=== PATIENT | female | born 1980 | race Two or more races ===

== ENCOUNTER → 2016-09-20 | Outpatient (REF) | payer OTHER | END | disposition home or self-care (01) | LOC: M SFHCLERA 20:06 | PROVIDERS: ATTEND Physician Assistant | DX: R30.0 Dysuria (principal) ==

== ENCOUNTER 2016-09-25 17:41 | Observation (INO) | payer OTHER ==
[~2016-09-25] VITALS: Ht 152.4 cm; Wt 56.7 kg
[2016-09-25] MEDS ORDERED: ONDANSETRON 4MG/2ML VIAL (J2405) As Ordered ONE (18:29)
[2016-09-25] MEDS ORDERED: MORPHINE 4 MG/ML 1ML SYRINGE As Ordered ONE (18:29)
[2016-09-25 18:55] LABS: CONTROL LINE UCG INT CTR LINE PRESENT
[2016-09-25 18:57] LABS: BASO % 0.4 % (0.0-1.0); EOS # 0.1 K/mm3 (0.0-0.50); EOS % 2.1 % (0.0-3.0); LARGE UNSTAINED CELL # 0.2 K/mm3 (0.0-0.4); LARGE UNSTAINED CELL % 2.7 % (0.0-4.0); LYMPH # 2.7 K/mm3 (1.5-4.5); LYMPH % 45.5 % (24.0-44.0); MEAN CORPUSCULAR HEMOGLOBIN 32.3 pg (27.0-33.0); MEAN CORPUSCULAR HGB CONC 33.5 g/dl (32.0-36.5); MEAN CORPUSCULAR VOLUME 96.4 fl (80.0-96.0); MONO # 0.2 K/mm3 (0.0-0.8); MONO % 3.7 % (0.0-5.0); NEUTROPHILS # 2.7 K/mm3 (1.8-7.7); NEUTROPHILS % 45.5 % (36.0-66.0); PLATELET COUNT, AUTOMATED 273 k/mm3 (150-450); RED CELL DISTRIBUTION WIDTH 11.9 % (11.5-14.5); WHITE BLOOD COUNT 5.8 K/mm3 (4.0-10.0)
[2016-09-25 19:25] LABS: ALBUMIN 4.1 GM/DL (3.2-5.2); ALBUMIN/GLOBULIN RATIO 1.41 (1.00-1.93); ALKALINE PHOSPHATASE 90 U/L (45-117); ALT/SGPT 18 U/L (12-78); ANION GAP 7 MEQ/L (8-16); AST/SGOT 15 U/L (15-37); BILIRUBIN,DIRECT < 0.1 MG/DL (0.0-0.2); BILIRUBIN,TOTAL 0.6 MG/DL (0.2-1.0); BLOOD UREA NITROGEN 16 MG/DL (7-18); CALCIUM LEVEL 8.7 MG/DL (8.5-10.1); CARBON DIOXIDE LEVEL 27 MEQ/L (21-32); CHLORIDE LEVEL 109 MEQ/L (98-107); CREATININE FOR GFR 0.67 MG/DL (0.55-1.02); GLOMERULAR FILTRATION RATE > 60.0 (>60); GLUCOSE, FASTING 83 MG/DL (70-105); POTASSIUM SERUM 3.6 MEQ/L (3.5-5.1); SODIUM LEVEL 143 MEQ/L (136-145)
[2016-09-25] MEDS ORDERED: KETOROLAC 30 MG/ML VIAL (J1885) As Ordered ONE (20:00)
--- NOTE | 2016-09-25 20:40 | REPUSA ---
CLINICAL STATEMENT: Renal colic TECHNIQUE: CT of the abdomen and pelvis without intravenous contrast. Post imaging 3D technique was e mployed to obtain multiplanar reformats in coronal and sagittal projections. COMPARISON: None FINDINGS: Visualized Lower Thorax : Lung bases are clear. Heart unremarkable. Kidneys: Normal in size with multiple bilateral stones measuring up to 6 mm in interpole without hydr oureteronephrosis. Bladder : No stones or diverticula. Liver: Normal in size with smooth contours. Biliary system: Status post cholecystectomy with no biliary ductal dilatation or calcified biliary st ones. Pancreas: Unremarkable. Spleen: Unremarkable. Adrenal glands: Unremarkable. Bowel: Normal caliber. No wall thickening appreciated. Uterus/adnexa: Unremarkable. Lymph nodes: No enlarged lymphadenopathy. Vasculature : No aneurysm . Peritoneum/Mesentery/Retroperitoneum : No ascites. No extraluminal air. Abdominal wall: No hernias Osseous Structures : No suspicious lesions or acute fracture. Mild multilevel degenerative changes of the spine. Soft Tissues : No suspicious mass or acute inflammatory process. Spinal canal/Visualized sacral foramina : No enlarged mass. IMPRESSION: Multiple bilateral stones measuring up to 6 mm in interpole without hydroureteronephrosis. Thank you for the kind referral of this patient.
[2016-09-25] MEDS ORDERED: ZOFR20TA PO (21:21)
[2016-09-25] MEDS ORDERED: CIPR500T89 PO (21:21)
[2016-09-25] MEDS ORDERED: PERCOCET 5MG/325MG TAB PO PRN (21:30)
[2016-09-25] MEDS ORDERED: ONDANSETRON 4MG/2ML VIAL (J2405) IV PRN (21:30)
[2016-09-25] MEDS ORDERED: ACETAMINOPHEN TAB 650MG DOSE (2X325MG) PO PRN (21:30)
[2016-09-25] MEDS ORDERED: PERCOCET 5MG/325MG TAB As Ordered ONE ×2 (21:56→23:45)
--- NOTE | 2016-09-25 22:19 | HPE ---
DATE OF ADMISSION: 09/25/2016 PRIMARY CARE PROVIDER: None. Patient just moved over from [facility], but should be seeing physicians on [facility]. CHIEF COMPLAINT: Left-sided flank pain, chills. HISTORY OF PRESENT ILLNESS: This is a 36yo female patient with underlying medical history of medullary sponge kidney with recurrent kidney stones and frequent urinary tract infection (UTI) presented since Friday with worsening left-sided flank pain, onset on Friday. As per patient, she gets chronic bilateral flank pain but does get episodic worsening flank pain and also UTIs frequently numerous times over the past year. The patient had two kidney surgeries in the past for kidney stones. The patient presented to Urgent Care on Friday with 8 out of 10 left-sided flank pain and chills. Denies any dysuria, hematuria, change in colors or increasing frequencies. Was prescribed with Cipro. Despite treatment, the patient's condition worsened and as of today the patient had 10 episodes of nausea and vomiting, nonbloody, nonbilious, mostly food. Not tolerating much oral and unable to take medications. Subsequently, the patient presents to the emergency room. Was given pain medication in the emergency room. Reported pain much improved, at its worst is 8 out of 10 with no relieving or exacerbating factor, mostly on the left side and with mild abdominal pain bilateral lower quadrant. The patient used to see a structures engineer and urologist in [facility] but because of the move the patient did not have subsequent followup. Last kidney surgery was two years ago. Denies any chest pain, pressure or discomfort. Denies any diarrhea or constipation. ALLERGIES: No known drug allergies. PAST MEDICAL HISTORY: Medullary sponge kidney disease. Nephrolithiasis. Frequent UTI. PAST SURGICAL HISTORY: Cholecystectomy. Tubal ligation. Kidney stone removal surgery twice. The last one was two years ago. SOCIAL HISTORY: The patient smokes a half a pack per day for 10 years. Denies alcohol drinking. Denies any illicit drug use. REVIEW OF SYSTEMS: 11-point review of systems are negative except those mentioned in the HPI. HOME MEDICATIONS: The patient is on: - ciprofloxacin 500 mg by mouth twice a day - Zofran 4 mg by mouth as needed three times a day for nausea VITAL SIGNS: Blood pressure 86/54, pulse 52, respirations 16, temperature 98.5, pulse oximetry 100% on room air. GENERAL: The patient alert and oriented times three. In no acute distress. HEENT: Normocephalic, atraumatic. PULMONARY: Bilateral clear to auscultation. CARDIAC: Regular rate and rhythm. Normal S1, S2. ABDOMEN: Soft, minimal suprapubic tenderness, no rebound, no guarding. Normal bowel sounds flank, less DVA, mild tender to palpation. EXTREMITIES: No edema bilateral lower extremities. CT scan shows multiple bilateral stones measuring up to 6 mm in the interpolar with hydronephrosis. LABORATORY: WBC 5.8, hemoglobin and hematocrit 14.3/42.8, platelets 273. Chemistry: Sodium 143, potassium 3.6, chloride 109, bicarbonate 27, anion gap 7, BUN 16, creatinine 0.67. Lipase 125. ASSESSMENT AND PLAN: This is a 36-year-old female patient with underlying medical history of medullary sponge kidney disease, nephrolithiasis, recurrent UTI admitted for pyelonephritis and nephrolithiasis with left-sided flank pain and was also found hypotensive in the emergency room. PROBLEM LIST: 1. Left-sided pyelonephritis and bilateral nephrolithiasis. IV fluids for hydration. Pain regimen as prescribed. Zofran as needed. Antibiotics switched to Rocephin. Followup UA appreciated. Urine cultures. The patient will need outpatient followup with urology. IV hydration. 2. Hypotension. Possible etiology include underlying infection versus baseline blood pressure that is low versus opioids. IV hydration has been given. Given 2 liters of boluses in emergency room. Placed on maintenance fluids. Followup lactic acid. 3. Medullary sponge kidney disease. Outpatient followup with nephrology and urology. 4. Nephrolithiasis. Outpatient followup with urology. Continue antibiotics as ordered. 5. Nausea and vomiting. Likely secondary to pyelonephritis. Zofran as needed. Antibiotics as above. DVT prophylaxis. Lovenox subcutaneous. DISPOSITION PLANNING: Pending clinical improvement. The patient admitted under observation. If patient tolerated by mouth (p.o.) with improved vital signs. Possible discharge tomorrow.
--- NOTE | 2016-09-25 23:56 | EDDOCDS ---
Physician Documentation [facility] Name: Gi Alvarez Age: 36 yrs Sex: Female : 1980 Arrival Date: 09/25/2016 Time: 17:41 Bed 5 Private MD: Shoshana - Complete Info On Cds Disposition: 09/25/16 20:59 Hospitalization ordered by Sunita Harmon for Inpatient Admission. Preliminary diagnosis are Unspecified abdominal pain, Hypotension, unspecified. - Bed requested for M PED. - Status is Inpatient Admission. cf2 - Condition is Stable. - Problem is new. - Symptoms are unchanged. Historical: - Allergies: No known drug Allergies; - Home Meds: 1. Cipro 500 mg Oral tab 1 tab every 12 hours 2. Zofran (as hydrochloride) 4 mg Oral tab every 12 hours - PMHx: MSK; kidney stones; frequent UTI; - PSHx: Tubal ligation; kidney stone removal; - Social history: Smoking status: Patient uses tobacco products, light tobacco smoker. No barriers to communication noted, The patient speaks fluent Slovenian, Speaks appropriately for age. - Family history: Not pertinent. - : The pt / caregiver states he / she is not on anticoagulants. Home medication list is obtained from the patient. - Exposure Risk Screening:: None identified. 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 0 in. (152.40 cm) (R); Pain 6/10; 18:24 BP 99 / 62 (auto/); ead 18:26 Pulse 62 MON; Resp 16; Pulse Ox 97% on R/A; ead 18:39 BP 87 / 54 (auto/); ead 18:39 Pulse 60 MON; Pulse Ox 96% ; ead 18:44 BP 82 / 53 (auto/); ead 18:44 Pulse 52 MON; Pulse Ox 97% ; ead 18:55 BP 86 / 54 LA Supine (man/); ead 18:58 BP 88 / 52 (auto/); ead 18:58 Pulse 52 MON; Resp 16; Pulse Ox 95% on R/A; ead 19:00 Pain 6/10; ead 19:24 BP 91 / 50 (auto/); cf2 19:24 Pulse 84 MON; Pulse Ox 86% ; cf2 19:27 Pulse 48 MON; Pulse Ox 100% ; cf2 19:27 BP 93 / 61; Pulse 62; Resp 16; Temp 98.8; Pulse Ox 99% on R/A; Pain 8/10; cf2 19:28 Pulse 54 MON; Pulse Ox 99% ; cf2 20:42 BP 89 / 53 (auto/); cf2 17:43 Body Mass Index 24.41 (56.70 kg, 152.40 cm) gr2 MDM: 18:03 IV Saline Lock ordered. br1 18:04 CBC with Diff Ordered. EDMS 18:05 BMP Ordered. EDMS 18:05 Liver Profile Ordered. EDMS 18:05 Lipase Ordered. EDMS 18:06 Urinalysis Ordered. EDMS 18:06 Urine Test-In Lab Ordered. EDMS 18:06 Urine Culture Ordered. EDMS 18:10 morphine 4 mg IVP once ordered. br1 18:10 Ondansetron 4 mg IVP once ordered. br1 18:10 NS 0.9% 1000 ml IV at bolus once ordered. br1 18:22 Undress patient ordered. br1 18:56 Financial registration complete. zo 18:57 NS 0.9% 1000 ml IV at bolus once ordered. br1 18:57 Urine Test-In Lab Reviewed. br1 19:02 [facility] Payment Agreement was scanned into [employer] and attached to record. zo 19:22 CBC with Diff Reviewed. br1 19:22 Urinalysis Reviewed. br1 19:22 Urine Test-In Lab Reviewed. br1 19:24 CT ABD & PELVIS: No Contrast Ordered. EDMS 19:51 BMP Reviewed. br1 19:51 Liver Profile Reviewed. br1 19:51 Lipase Reviewed. br1 19:51 ketorolac 30 mg IVP once ordered. br1 20:57 Lactic Acid (Leger tube on ice) Ordered. EDMS 20:57 BED REQUEST+ADM ordered. EDMS 21:21 COMPLETE BLOOD COUNT Ordered. EDMS 21:21 BASIC METABOLIC PROFILE Ordered. EDMS 21:21 MAGNESIUM LEVEL Ordered. EDMS 21:21 LACTIC ACID LEVEL, LACTATE Ordered. EDMS 21:25 Admission / Observation Status ordered. EDMS 21:25 REGULAR DIET ordered. EDMS 22:14 oxyCODONE-acetaminophen 5 mg-325 mg 1 tabs PO once ordered. cf2 23:52 oxyCODONE-acetaminophen 5 mg-325 mg 1 tabs PO once; orders from dr Harmon ordered. cf2 Administered Medications: 18:35 Drug: Ondansetron 4 mg [ondansetron HCl 2 mg/mL intravenous solution (2 mL)] Route: ead IVP; Site: right antecubital; 19:00 Follow up: Response: Nausea is decreased; No Adverse Reaction ead 18:35 Drug: NS 0.9% 1000 ml [sodium chloride 0.9 % intravenous solution] Route: IV; Rate: ead bolus; Site: right antecubital; 18:37 Drug: morphine 4 mg [morphine 4 mg/mL intravenous cartridge (1 mL)] Route: IVP; Site: ead right antecubital; 19:00 Follow up: Pain 6/10 Adult; Response: Confirmed pt not driving.; No Adverse Reaction; ead Pain is decreased 19:05 Drug: NS 0.9% 1000 ml [sodium chloride 0.9 % intravenous solution] Route: IV; Rate: ead bolus; Site: right antecubital; 20:00 Drug: ketorolac 30 mg [ketorolac 30 mg/mL (1 mL) injection solution (1 mL)] Route: IVP; cf2 Site: left antecubital; 20:09 Follow up: Response: Pain is decreased cf2 21:50 Drug: oxyCODONE-acetaminophen 1 tabs [oxycodone-acetaminophen 5 mg-325 mg tablet (1 cf2 tabs)] Route: PO; 23:52 Follow up: Response: Pain is decreased cf2 23:52 Drug: oxyCODONE-acetaminophen 1 tabs [oxycodone-acetaminophen 5 mg-325 mg tablet (1 cf2 tabs)] Route: PO; 23:52 Follow up: Response: Pt left department before re-evaluation is appropriate cf2 Signatures: Dispatcher [employer] EDJackie Garcia,KIANA RN jo3 Anurag Pinto Kristopher, BITA CFD ENGINEER [email or web address] Ilia Pickett DO DO [id number] iFnn Alonzo MD MD br1 Clarisa PerezRN RN cf2 Nate Gambino RN RN Grecia Clifford RN The chart was reviewed and I authenticate all verbal orders and agree with the evaluation and treatment provided.Attachments: 19:02 [facility] Payment Agreement zo [email or web address]
--- NOTE | 2016-09-25 23:56 | EDDOCDS ---
Nurse's Notes [facility] Name: Gi Alvarez Age: 36 yrs Sex: Female : 1980 Arrival Date: 09/25/2016 Time: 17:41 Bed 5 Private MD: Other - Complete Info On Cds Diagnosis: Unspecified abdominal pain;Hypotension, unspecified Presentation: 09/25 17:48 Presenting complaint: Patient states: Sent over my Dr Schuler's because of likely kidney jo3 stones. Has a MSK and has had multiple kidney stones in the past. Having back and abdominal pain of left side. Acute neurological deficits are not present. Mechanism of Injury: No Mechanism of Injury. Adult Sepsis Screening: The patient does not have new or worsening altered mentation. Patient's respiratory rate is less than 22. Systolic blood pressure is less than or equal to 100 (1 point). Patient has a qSOFA score of 0- Negative Sepsis Screen. Suicide/Homicide risk assessment- the patient denies having any suicidal and/or homicidal ideations and does not present with any other emotional, behavioral or mental health complaints. Status: The patient is a dependent. Transition of care: patient was not received from another setting of care. 17:48 Acuity: JAROD Level 3 jo3 17:48 Method Of Arrival: Walkin/Carried/Asstd jo3 Triage Assessment: 17:52 General: Appears in no apparent distress, uncomfortable, Behavior is appropriate for jo3 age, cooperative. Pain: Pain currently is 8 out of 10 on a pain scale. HIV screening NA for this visit Offered previously. Neurological: Level of Consciousness is awake, alert, Oriented to person, place, time. Respiratory: Airway is patent Respiratory effort is even, unlabored. Derm: Skin is pink, warm & dry. 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 Cipro 500 mg Oral tab 1 tab every 12 hours 2. Zofran (as hydrochloride) 4 mg Oral tab every 12 hours - PMHx: MSK; kidney stones; frequent UTI; - PSHx: Tubal ligation; kidney stone removal; - Social history: Smoking status: Patient uses tobacco products, light tobacco smoker. No barriers to communication noted, The patient speaks fluent Yakut, Speaks appropriately for age. - Family history: Not pertinent. - : The pt / caregiver states he / she is not on anticoagulants. Home medication list is obtained from the patient. - Exposure Risk Screening:: None identified. Screenin:28 Screening information is obtained from the patient. Fall risk: No risks identified. cf2 Assistance ADL's: requires no assistance with activities of daily living. Abuse/DV Screen: The patient / caregiver reports he/she is: not in a situation that causes fear, pain or injury. Nutritional screening: No deficits noted. Advance Directives: Further advance directive information is declined. home support is adequate. Assessment: 18:46 General: Appears in no apparent distress, uncomfortable, Behavior is appropriate for ead age, cooperative. Pain: Location: posterior aspect of left lateral abdomen and anterior aspect of left lateral abdomen Pain currently is 8 out of 10 on a pain scale. Neurological: No deficits noted. Respiratory: Airway is patent Respiratory effort is even, unlabored. GI: Abdomen is non- distended Bowel sounds present X 4 quads. Abd is soft X 4 quads Abd is tender to palpation X 4 quads. Reports lower abdominal pain, upper abd pain, nausea, vomiting. : Denies burning with urination, pain with urination. Derm: Skin is pink, warm & dry. Musculoskeletal: Reports pain in posterior aspect of left lateral abdomen and anterior aspect of left lateral abdomen. 22:14 General: Patient states pain is returning. Patient medicated with Percocet 5/325 1 tab cf2 per admission orders and given a dinner tray. Will continue to monitor. 23:50 General: Patient with complaint of increasing flank pain. Dr GEIGER called and per Dr Geiger cf2 give Percoct 5/325 1 tab PO now x's 1. Patient medicated per md orders. Report to KIANA Powell, on Peds floor.. Vital Signs: 17:43 BP 98 / 54; Pulse 70; Resp 18 S; Temp 98.5(O); Pulse Ox 100% on R/A; Weight 56.7 kg gr2 (R); Height 5 ft. 0 in. (152.40 cm) (R); Pain 6/10; 18:24 BP 99 / 62 (auto/); ead 18:26 Pulse 62 MON; Resp 16; Pulse Ox 97% on R/A; ead 18:39 BP 87 / 54 (auto/); ead 18:39 Pulse 60 MON; Pulse Ox 96% ; ead 18:44 BP 82 / 53 (auto/); ead 18:44 Pulse 52 MON; Pulse Ox 97% ; ead 18:55 BP 86 / 54 LA Supine (man/); ead 18:58 BP 88 / 52 (auto/); ead 18:58 Pulse 52 MON; Resp 16; Pulse Ox 95% on R/A; ead 19:00 Pain 6/10; ead 19:24 BP 91 / 50 (auto/); cf2 19:24 Pulse 84 MON; Pulse Ox 86% ; cf2 19:27 Pulse 48 MON; Pulse Ox 100% ; cf2 19:27 BP 93 / 61; Pulse 62; Resp 16; Temp 98.8; Pulse Ox 99% on R/A; Pain 8/10; cf2 19:28 Pulse 54 MON; Pulse Ox 99% ; cf2 20:42 BP 89 / 53 (auto/); cf2 17:43 Body Mass Index 24.41 (56.70 kg, 152.40 cm) gr2 Vitals: 17:43 Log In Time: September 25, 2016 at 17:43. gr2 ED Course: 17:42 Patient visited by Katherine Hanson. gr2 17:42 Patient moved to Waiting gr2 17:43 Other - Complete Info On Cds is Private Physician. gr2 17:44 Patient visited by Katherine Hanson. gr2 17:44 Patient moved to Pre RCE gr2 17:50 Triage Initiated jo3 17:54 Patient visited by Jackie Pan RN. jo3 18:02 Grecia Orellana,RN is Primary Nurse. ck1 18:02 Patient moved to 5 ck1 18:03 Finn Alonzo MD is Attending Physician. br1 18:09 Patient visited by Finn Alonzo MD. br1 18:28 Patient visited by Grecia Orellana,KIANA. ead 18:28 Urine Culture Sent. ead 18:28 Urine Test-In Lab Sent. ead 18:28 Urinalysis Sent. ead 18:28 CBC with Diff Sent. ead 18:28 BMP Sent. ead 18:28 Liver Profile Sent. ead 18:28 Lipase Sent. ead 18:29 Inserted peripheral IV: 18gauge IV in right antecubital area and blood collected. ead Patient tolerated the procedure well. 18:45 Patient visited by Grecia Orellana RN. ead 18:58 Patient visited by Grecia Orellana RN. ead 19:01 Patient visited by Grecia Orellana RN. ead 19:02 [facility] Payment Agreement was scanned into [employer] and attached to record. zo 19:06 Primary Nurse role handed off by Grecia Orellana RN cf2 19:06 Clarisa Perez RN is Primary Nurse. cf2 19:06 Patient visited by Clarisa Perez RN. cf2 19:28 The patient / caregiver is instructed regarding the plan of care and ED course. Patient cf2 has correct armband on for positive identification. Placed in gown. Bed in low position. Call light in reach. Side rails up X 1. Side rails up X2. site monitor on. Pulse ox on. NIBP on. Door closed. Noise minimized. Visitors limited. Lights dimmed. Moved to private room. Verbal reassurance given. Warm blanket given. Pillow given. Head of bed elevated. Diet: Patient is NPO. 19:28 No procedures done that require assistance. cf2 19:46 Patient visited by Clarisa Perez RN. cf2 20:18 Patient visited by Clarsia Perez RN. cf2 20:34 Patient visited by Clarisa Perez RN. cf2 20:59 Sunita Geiger is Hospitalizing Provider. br1 21:09 Patient visited by Clarisa Perez RN. cf2 21:32 CT ABD & PELVIS: No Contrast Returned. EDMS 22:23 Patient visited by Clarisa Perez RN. cf2 22:49 Patient visited by Clarisa Perez RN. cf2 22:58 Patient visited by Clarisa Perez RN. cf2 23:21 Patient visited by Clarisa Perez RN. cf2 23:22 Patient visited by Clarisa Perez RN. cf2 23:49 Patient visited by Clarisa Perez RN. cf2 Administered Medications: 18:35 Drug: Ondansetron 4 mg [ondansetron HCl 2 mg/mL intravenous solution (2 mL)] Route: ead IVP; Site: right antecubital; 19:00 Follow up: Response: Nausea is decreased; No Adverse Reaction ead 18:35 Drug: NS 0.9% 1000 ml [sodium chloride 0.9 % intravenous solution] Route: IV; Rate: ead bolus; Site: right antecubital; 18:37 Drug: morphine 4 mg [morphine 4 mg/mL intravenous cartridge (1 mL)] Route: IVP; Site: ead right antecubital; 19:00 Follow up: Pain 02/01 Adult; Response: Confirmed pt not driving.; No Adverse Reaction; ead Pain is decreased 19:05 Drug: NS 0.9% 1000 ml [sodium chloride 0.9 % intravenous solution] Route: IV; Rate: ead bolus; Site: right antecubital; 20:00 Drug: ketorolac 30 mg [ketorolac 30 mg/mL (1 mL) injection solution (1 mL)] Route: IVP; cf2 Site: left antecubital; 20:09 Follow up: Response: Pain is decreased cf2 21:50 Drug: oxyCODONE-acetaminophen 1 tabs [oxycodone-acetaminophen 5 mg-325 mg tablet (1 cf2 tabs)] Route: PO; 23:52 Follow up: Response: Pain is decreased cf2 23:52 Drug: oxyCODONE-acetaminophen 1 tabs [oxycodone-acetaminophen 5 mg-325 mg tablet (1 cf2 tabs)] Route: PO; 23:52 Follow up: Response: Pt left department before re-evaluation is appropriate cf2 Order Results: Lab Order: CBC with Diff; SPEC'M 09/25/16 18:25 Test: WHITE BLOOD COUNT; Value: 5.8; Range: 4.0-10.0; Units: K/mm3; Status: F Test: RED BLOOD COUNT; Value: 4.44; Range: 4.00-5.40; Units: M/mm3; Status: F Test: HEMOGLOBIN; Value: 14.3; Range: 12.0-16.0; Units: g/dl; Status: F Test: HEMATOCRIT; Value: 42.8; Range: 36.0-47.0; Units: %; Status: F Test: MEAN CORPUSCULAR VOLUME; Value: 96.4; Range: 80.0-96.0; Abnormal: Above high normal; Units: fl; Status: F Test: MEAN CORPUSCULAR HEMOGLOBIN; Value: 32.3; Range: 27.0-33.0; Units: pg; Status: F Test: MEAN CORPUSCULAR HGB CONC; Value: 33.5; Range: 32.0-36.5; Units: g/dl; Status: F Test: RED CELL DISTRIBUTION WIDTH; Value: 11.9; Range: 11.5-14.5; Units: %; Status: F Test: PLATELET COUNT, AUTOMATED; Value: 273; Range: 150-450; Units: k/mm3; Status: F Test: NEUTROPHILS %; Value: 45.5; Range: 36.0-66.0; Units: %; Status: F Test: LYMPH %; Value: 45.5; Range: 24.0-44.0; Abnormal: Above high normal; Units: %; Status: F Test: MONO %; Value: 3.7; Range: 0.0-5.0; Units: %; Status: F Test: EOS %; Value: 2.1; Range: 0.0-3.0; Units: %; Status: F Test: BASO %; Value: 0.4; Range: 0.0-1.0; Units: %; Status: F Test: LARGE UNSTAINED CELL %; Value: 2.7; Range: 0.0-4.0; Units: %; Status: F Test: NEUTROPHILS #; Value: 2.7; Range: 1.8-7.7; Units: K/mm3; Status: F Test: LYMPH #; Value: 2.7; Range: 1.5-4.5; Units: K/mm3; Status: F Test: MONO #; Value: 0.2; Range: 0.0-0.8; Units: K/mm3; Status: F Test: EOS #; Value: 0.1; Range: 0.0-0.50; Units: K/mm3; Status: F Test: BASO #; Value: 0.0; Range: 0.0-0.2; Units: K/mm3; Status: F Test: LARGE UNSTAINED CELL #; Value: 0.2; Range: 0.0-0.4; Units: K/mm3; Status: F Lab Order: BMP; SPEC'M 09/25/16 18:25 Test: GLUCOSE, FASTING; Value: 83; Range: 70-105; Units: MG/DL; Status: F Test: BLOOD UREA NITROGEN; Value: 16; Range: 7-18; Units: MG/DL; Status: F Test: CREATININE FOR GFR; Value: 0.67; Range: 0.55-1.02; Units: MG/DL; Status: F Test: GLOMERULAR FILTRATION RATE; Value: > 60.0; Range: >60; Status: F Test: SODIUM LEVEL; Value: 143; Range: 136-145; Units: MEQ/L; Status: F Test: POTASSIUM SERUM; Value: 3.6; Range: 3.5-5.1; Units: MEQ/L; Status: F Test: CHLORIDE LEVEL; Value: 109; Range: 98-107; Abnormal: Above high normal; Units: MEQ/L; Status: F Test: CARBON DIOXIDE LEVEL; Value: 27; Range: 21-32; Units: MEQ/L; Status: F Test: ANION GAP; Value: 7; Range: 8-16; Abnormal: Below low normal; Units: MEQ/L; Status: F Test: CALCIUM LEVEL; Value: 8.7; Range: 8.5-10.1; Units: MG/DL; Status: F Test Note: ; Units are mL/min/1.73 m2 Chronic Kidney Disease Staging per NKF: Stage I & II GFR >=60 Normal to Mildly Decreased Stage III GFR 30-59 Moderately Decreased Stage IV GFR 15-29 Severely Decreased Stage V GFR <15 Very Little GFR Left ESRD GFR <15 on SAP [employer]ROLL CONSULTANT Lab Order: Liver Profile; SPEC'M 09/25/16 18:25 Test: AST/SGOT; Value: 15; Range: 15-37; Units: U/L; Status: F Test: ALT/SGPT; Value: 18; Range: 12-78; Units: U/L; Status: F Test: ALKALINE PHOSPHATASE; Value: 90; Range: 45-117; Units: U/L; Status: F Test: BILIRUBIN,TOTAL; Value: 0.6; Range: 0.2-1.0; Units: MG/DL; Status: F Test: BILIRUBIN,DIRECT; Value: < 0.1; Range: 0.0-0.2; Units: MG/DL; Status: F Test: TOTAL PROTEIN; Value: 7.0; Range: 6.4-8.2; Units: GM/DL; Status: F Test: ALBUMIN; Value: 4.1; Range: 3.2-5.2; Units: GM/DL; Status: F Test: ALBUMIN/GLOBULIN RATIO; Value: 1.41; Range: 1.00-1.93; Status: F Lab Order: Lipase; SPEC'M 09/25/16 18:25 Test: LIPASE; Value: 125; Range: 73-393; Units: U/L; Status: F Lab Order: Urinalysis; SPEC'M 09/25/16 18:25 Test: APPEARANCE, URINE; Value: HAZY; Range: CLEAR; Status: F Test: COLOR, URINE; Value: YELLOW; Range: YELLOW; Status: F Test: PH,URINE; Value: 5.0; Range: 5.0-9.0; Units: UNITS; Status: F Test: SPECIFIC GRAVITY URINE AUTO; Value: 1.031; Range: 1.002-1.035; Status: F Test: PROTEIN, URINE AUTO; Value: 1+; Range: NEGATIVE; Abnormal: Above high normal; Units: mg/dL; Status: F Test: GLUCOSE, URINE (UA) AUTO; Value: NEGATIVE; Range: NEGATIVE; Units: mg/dL; Status: F Test: KETONE, URINE AUTO; Value: NEGATIVE; Range: NEGATIVE; Units: mg/dL; Status: F Test: UROBILINOGEN, URINE AUTO; Value: 0.2; Range: 0.0-2.0; Units: mg/dL; Status: F Test: BILIRUBIN, URINE AUTO; Value: NEGATIVE; Range: NEGATIVE; Status: F Test: NITRITE, URINE AUTO; Value: NEGATIVE; Range: NEGATIVE; Status: F Test: LEUKOCYTE ESTERASE, URINE AUTO; Value: NEGATIVE; Range: NEGATIVE; Status: F Test: BLOOD, URINE BLOOD; Value: 1+; Range: NEGATIVE; Abnormal: Above high normal; Status: F Test: SPERM, URINE AUTO; Range: NONE; Status: I Test: WBC, URINE AUTO; Value: 2; Range: 0-3; Units: /HPF; Status: F Test: RBC, URINE AUTO; Value: 6; Range: 0-3; Abnormal: Above high normal; Units: /HPF; Status: F Test: BACTERIA, URINE AUTO; Value: NEGATIVE; Range: NEGATIVE; Status: F Test: SQUAMOUS EPITHELIAL CELL UR AU; Value: 11; Range: 0-6; Units: /HPF; Status: F Test: MUCUS, URINE; Value: LARGE; Range: NEGATIVE; Status: F Test: HYALINE CAST, URINE AUTO; Value: 0; Range: 0-1; Units: /LPF; Status: F Lab Order: Urine Test-In Lab; SPEC'M 09/25/16 18:25 Test: URINE PREG TEST; Value: NEGATIVE; Range: NEGATIVE; Status: F Radiology Order: CT ABD & PELVIS: No Contrast Test: CT ABD & PELVIS: No Contrast REASON FOR EXAMINATION: Renal colic; ; CLINICAL STATEMENT: Renal colic; TECHNIQUE: CT of the abdomen and pelvis without intravenous contrast. Post imaging 3D technique was e; mployed to obtain multiplanar reformats in coronal and sagittal projections.; COMPARISON: None; FINDINGS:; Visualized Lower Thorax : Lung bases are clear. Heart unremarkable.; Kidneys: Normal in size with multiple bilateral stones measuring up to 6 mm in interpole without hydr; oureteronephrosis.; Bladder : No stones or diverticula.; Liver: Normal in size with smooth contours.; Biliary system: Status post cholecystectomy with no biliary ductal dilatation or calcified biliary st; ones.; Pancreas: Unremarkable.; Spleen: Unremarkable.; Adrenal glands: Unremarkable.; Bowel: Normal caliber. No wall thickening appreciated.; Uterus/adnexa: Unremarkable.; Lymph nodes: No enlarged lymphadenopathy.; Vasculature : No aneurysm .; Peritoneum/Mesentery/Retroperitoneum : No ascites. No extraluminal air.; Abdominal wall: No hernias; Osseous Structures : No suspicious lesions or acute fracture. Mild multilevel degenerative changes of; the spine.; Soft Tissues : No suspicious mass or acute inflammatory process.; Spinal canal/Visualized sacral foramina : No enlarged mass.; IMPRESSION:; Multiple bilateral stones measuring up to 6 mm in interpole without hydroureteronephrosis.; Thank you for the kind referral of this patient.; ; Outcome: 20:59 Decision to Hospitalize by Provider. br1 23:52 Discharge Assessment: Patient awake, alert and oriented x 3. No cognitive and/or cf2 functional deficits noted. Patient verbalized understanding of disposition instructions. Patient awake and alert. Oriented to person, place and time. patient administered narcotics - yes. Patient was admitted to the hospital or transferred to another facility. The following High Risk Discharge criteria are identified: None. Admitted to Pediatrics. Condition: stable. CT Study completed. Property :Personal belongings accompany Pt. 23:55 Patient left the ED. cf2 Signatures: Dispatcher [employer] EDMS Ofelia Oleary,RN RN ck1 Jackie PanRN RN jo3 Anurag Pinto Brian, MD MD br1 Katherine Hanson2 Grecia Orellana,RN RN Clarisa GormanRN RN cf2 MARY ELLEN
[2016-09-26] VITALS (12 sets, daily range): BP systolic 79–108; BP diastolic 42–56
[2016-09-26] MEDS: KCL 20MEQ IN 0.45NS 1000ML 1,000 ML IV SCH ×3 (01:18→20:19)
[2016-09-26] MEDS: LACTOBACILLUS ACIDOPHILUS CAP (BACID) PO SCH ×4 (01:18→20:18)
[2016-09-26] MEDS: SENOKOT S TAB PO SCH ×3 (01:19→20:10)
[2016-09-26] MEDS: cefTRIAXone SOD 2 GM in D5W MINI-BAG PLUS 50 ML IV SCH (01:19)
[2016-09-26 05:51] LABS: ANION GAP 5 MEQ/L (8-16); BLOOD UREA NITROGEN 15 MG/DL (7-18); CALCIUM LEVEL 7.1 MG/DL (8.5-10.1); CARBON DIOXIDE LEVEL 24 MEQ/L (21-32); CHLORIDE LEVEL 116 MEQ/L (98-107); CREATININE FOR GFR 0.56 MG/DL (0.55-1.02); GLOMERULAR FILTRATION RATE > 60.0 (>60); GLUCOSE, FASTING 112 MG/DL (70-105); MAGNESIUM LEVEL 1.9 MG/DL (1.8-2.4); POTASSIUM SERUM 4.1 MEQ/L (3.5-5.1); SODIUM LEVEL 145 MEQ/L (136-145)
[2016-09-26 06:01] LABS: MEAN CORPUSCULAR HEMOGLOBIN 33.3 pg (27.0-33.0); MEAN CORPUSCULAR HGB CONC 34.2 g/dl (32.0-36.5); MEAN CORPUSCULAR VOLUME 97.2 fl (80.0-96.0); RED CELL DISTRIBUTION WIDTH 12.1 % (11.5-14.5); WHITE BLOOD COUNT 5.2 K/mm3 (4.0-10.0)
[2016-09-26] MEDS ORDERED: SODIUM CHLORIDE 0.9% 1000 ML IV ONE (06:30)
[2016-09-26] MEDS: ENOXAPARIN 30 MG/0.3 ML SYR (J1650) SC SCH (09:30)
[2016-09-26] MEDS: NICOTINE 14 MG/24 HR TRANSDERMAL TD SCH (09:30)
[2016-09-26] MEDS: PERCOCET 5MG/325MG TAB PO PRN ×3 (09:31→20:19)
--- NOTE | 2016-09-26 12:22 | IPN ---
DATE: 09/26/2016 SUBJECTIVE: This is a 36-year-old female who is seen and examined at bedside. Has a history of medullary sponge kidney with recurrent nephrolithiasis and urinary tract infection (UTI) who was admitted for possible pyelonephritis and nephrolithiasis. This morning, feels better, 70-80% better compared to admission. States that she normally has low blood pressure with systolic in the 80s and low heart rate anywhere in the 40s. Back pain is present but improved compared to admission. Positive for chills but no fevers, headaches, nausea, vomiting, diarrhea, constipation. Her dysuria is improved compared to prior to admission. PHYSICAL EXAMINATION: Vital signs: Blood pressure 79/42, heart rate 50, temperature 97.6, respiration rate 16, pulse ox 100% on room air. Intake and output the last 24 hours not accurately documented. General: Patient is lying in bed comfortable, no acute distress. She is alert, awake, oriented times three, pleasant, cooperative. Partner at bedside. HEENT: Normocephalic, atraumatic. Neck: Supple. Tracheal midline. No jugular venous distention (JVD). Chest: Symmetric chest rise. No accessory muscle use. Breath sounds are clear to auscultation bilaterally. Heart: Bradycardic but regular, normal S1, S2. Could not appreciate any murmurs, rubs or gallops. Abdomen: Soft, mildly tender to palpation left lower quadrant. No guarding. No rebound. No peritoneal sign. Musculoskeletal: CVA tenderness on her left flank. Extremities: No pedal edema. Pedal pulses present bilaterally. LABORATORY DATA: WBC 5.2, hemoglobin 11.5, hematocrit 33.7, platelets 225. Sodium 145, potassium 4.1, chloride 116, carbon dioxide 24, BUN 15, creatinine 0.56, glucose 112, magnesium 1.9, calcium 7.1. Urinalysis: 1+ protein, 1+ blood. Red blood cells 6. Urine culture pending. CT abdomen and pelvis reports bilateral multiple stones measuring up to 6 mm without hydroureteronephrosis. ASSESSMENT AND PLAN: 36-year-old female with history of medullary sponge kidney presented with left flank pain, nausea with vomiting. 1. Bilateral nephrolithiasis. Continue pain control with Percocet and Tylenol as needed. Patient at baseline has low systolic blood pressure in the 80s and low heart rate. For now, continue Rocephin though she did not have a confirmed diagnosis on urinalysis or CT finding of pyelonephritis. 2. Medullary sponge kidney. We have requested consult with Dr. Chawla for further assistance regarding this. 3. Asymptomatic hypotension. Continue to monitor for now. 4. Asymptomatic bradycardia. It chronically runs low. Monitor for now without further intervention at this time. 5. Tobacco abuse. Continue nicotine patch. 6. Deep venous thrombosis (DVT) prophylaxis, sequential compression devices (SCD), thromboembolic deterrent stockings (TEDS). My preceptor for this patient encounter was Dr. Mata. The preceptor was physically present in the building during the encounter and was fully available. As needed, all aspects of the patient interview, examination, medical decision making process, and medical care plan development were reviewed and approved by the preceptor. The preceptor is aware and concurs with the plan as stated in the body of this note and will attest to such by his/her cosignature.
--- NOTE | 2016-09-26 14:51 | CR ---
DATE OF CONSULTATION: 09/26/2016 CONSULTATION REPORT FOR: Declan Mata MD REASON FOR CONSULTATION: Left flank pain and history of medullary sponge kidney disease. HISTORY OF PRESENT ILLNESS: This is a 36-year-old female patient that has an important past medical history of medullary sponge kidney disease with recurrent kidney stones and frequent urinary tract infections. She presented 6 days ago with worsening left-sided flank pain and a possible lower urinary tract infection. She started on ciprofloxacin. The pain persisted and for this reason she came to the emergency department at [facility]. She refers left flank pain, no radiation. She refers chills. There is no increased temperature during the hospitalization. The urine cultures are negative until now. She has been started on antibiotic therapy intravenous (IV). A CT scan of the abdomen and pelvis shows multiple bilateral calcifications, nonobstructing, no stones in the ureters, no hydronephrosis bilaterally, bladder is empty. The patient tolerates well regular food and no nausea, no vomiting. She refers left flank pain. She also refers that she was treated with potassium citrate and she stopped taking this about 2 months ago. She has had episodes of ureteroscopy stent placements and shock wave lithotripsies also due to her recurrent kidney stones. At this moment in time, when we are talking to her, she does not have any severe pain, she only has mild discomfort on the left side after taking pain medications. No fever. No chills in last 24 hours. No nausea, no vomiting. She is voiding very well. No hematuria. She is passing gas. ALLERGIES: None. PAST MEDICAL HISTORY: 1. Medullary sponge kidney disease. 2. Nephrolithiasis. 3. Frequent urinary tract infections. PAST SURGICAL HISTORY: 1. Cholecystectomy. 2. Tubal ligation. 3. Kidney stone surgeries times two, the last one done 2 years ago. SOCIAL HISTORY: Patient smokes a half a pack per day for 10 years. Denies alcohol. Denies any illicit drug use. FAMILY HISTORY: She is and has five children. REVIEW OF SYSTEMS: We have reviewed the 12-review systems and there is no other symptomatology other than in history of present illness. MEDICATIONS: - ciprofloxacin 500 mg one tablet by mouth twice a day - Zofran 4 mg one tablet every 3 hours for nausea PHYSICAL EXAMINATION: She is awake, oriented times three, well-nourished, well-hydrated. SKIN: She has multiple tattoos in the arms. HEENT: Normocephalic and atraumatic. LUNGS: Clear to auscultation. No rhonchi. CARDIAC: Regular rate and rhythm. Normal S1, S2. No murmurs or gallops. ABDOMEN: Soft, nontender, nondistended. Mild left flank pain. No rebound. EXTREMITIES: No restricting to active passive movement of upper and lower extremities, no edema. NEUROLOGICAL: Intact. IMPRESSION AND PLAN: This is a 36-year-old female patient with an important underlying history of medullary sponge kidney disease and recurrent urinary tract infections (UTIs). PLAN: The patient should continue intravenous (IV) hydration and antibiotic therapy. She might have a urinary tract infection (UTI) which actually was covered by the ciprofloxacin that she was taking twice a day prior to having the urine culture here at [facility]. At this time, since she has medullary sponge kidney disease, we have seen the CT scan of the abdomen and pelvis with noncontrast done at [facility]. There is no obstruction of stones. The stones in the kidneys are microlithiasis bilateral and nonobstructing. There is no surgical indication to actually perform any type of procedure in this patient at this moment in time. Since she has a history of medullary sponge kidney disease, we will advise that the primary team should consult nephrology for a full evaluation and metabolic workup and possible placement on potassium citrate to prevent stone formation. The patient may followup with urology since she is going to be here in [place] and followup with us for any type of acute renal stone episode requiring surgery.
[2016-09-26] MEDS: KETOROLAC 30 MG/ML VIAL (J1885) IV PRN (16:21)
[2016-09-26] MEDS ORDERED: QUEtiapine FUMARATE 100 MG TAB PO SCH (21:00)
[2016-09-27] VITALS: BP 104/51
[2016-09-27] MEDS: KETOROLAC 30 MG/ML VIAL (J1885) IV PRN (00:32)
[2016-09-27] MEDS: cefTRIAXone SOD 2 GM in D5W MINI-BAG PLUS 50 ML IV SCH (00:32)
[2016-09-27 06:45] VITALS: BP 110/65
[2016-09-27 06:50] VITALS: BP 115/63
[2016-09-27 06:55] VITALS: BP 106/65
[2016-09-27] MEDS: KCL 20MEQ IN 0.45NS 1000ML 1,000 ML IV SCH (07:00)
[2016-09-27 07:22] LABS: MEAN CORPUSCULAR HEMOGLOBIN 31.9 pg (27.0-33.0); MEAN CORPUSCULAR HGB CONC 32.6 g/dl (32.0-36.5); MEAN CORPUSCULAR VOLUME 97.7 fl (80.0-96.0); RED CELL DISTRIBUTION WIDTH 12.1 % (11.5-14.5); WHITE BLOOD COUNT 5.4 K/mm3 (4.0-10.0)
[2016-09-27] MEDS ORDERED: PERCOCET PO (07:46)
[2016-09-27] MEDS ORDERED: NICO14PA TD (07:46)
[2016-09-27] MEDS ORDERED: CEFD1CAP8 PO (07:46)
[2016-09-27] MEDS ORDERED: MAPA325T2 PO (07:46)
[2016-09-27 07:47] LABS: ANION GAP 7 MEQ/L (8-16); BLOOD UREA NITROGEN 9 MG/DL (7-18); CALCIUM LEVEL 8.1 MG/DL (8.5-10.1); CARBON DIOXIDE LEVEL 22 MEQ/L (21-32); CHLORIDE LEVEL 115 MEQ/L (98-107); GLOMERULAR FILTRATION RATE > 60.0 (>60); GLUCOSE, FASTING 108 MG/DL (70-105); MAGNESIUM LEVEL 1.8 MG/DL (1.8-2.4); POTASSIUM SERUM 4.2 MEQ/L (3.5-5.1); SODIUM LEVEL 144 MEQ/L (136-145)
[2016-09-27 08:00] VITALS: BP 118/54
[2016-09-27] MEDS: ENOXAPARIN 30 MG/0.3 ML SYR (J1650) SC SCH (08:15)
[2016-09-27] MEDS: NICOTINE 14 MG/24 HR TRANSDERMAL TD SCH (08:16)
[2016-09-27] MEDS: SENOKOT S TAB PO SCH (08:41)
[2016-09-27] MEDS: LACTOBACILLUS ACIDOPHILUS CAP (BACID) PO SCH (08:41)
[2016-09-27] MEDS: PERCOCET 5MG/325MG TAB PO PRN (08:43)
[2016-09-27] MEDS ORDERED: INFLUENZA QUADRIVALENT PF VACCINE 0.5ML SYRINGE/VIAL (90686) IM ONE (09:00)
--- NOTE | 2016-09-27 22:20 | DSES ---
DATE OF ADMISSION: 09/25/2016 DATE OF DISCHARGE: 09/27/2016 PRIMARY CARE PROVIDER: Zo Rome PROCEDURES: None. CONSULTATIONS: Dr. Chawla of urology. COMPLICATIONS: None. DIAGNOSTIC IMAGING: CT of the abdomen and pelvis showed multiple bilateral stones measuring up to 6 mm in the pole without hydroureteronephrosis. No ascites in the peritoneum. DISCHARGE DIAGNOSES: 1. Presumptive urinary tract infection. 2. Medullary sponge kidney. 3. Asymptomatic hypotension. 5. Asymptomatic bradycardia. 6. Tobacco abuse. 7. Insomnia. Urine culture with no growth. BRIEF HOSPITAL COURSE: Ms. Alvarze is a pleasant 36-year-old female with past medical history of medullary sponge kidney with recurrent nephrolithiasis and urinary tract infection (UTI), recently moved here with her spouse from [place]. She reportedly was seeing a feather trimmer and urologist in [place]; however, has not been able to establish with any provider as she just recently moved in town. She actually presented to the emergency department on 09/25/2016 after failing outpatient treatment for presumptive urinary tract infection with levofloxacin. The patient was previously on five days of Cipro, but because of her persistent left flank pain and dysuria, she decided to come in for further evaluation. Of note, the patient also had difficulty with oral intake and unable to take her medications. Because of her symptoms, she was admitted for further evaluation. She was then changed to Rocephin for antibiotic choice, and was evaluated by urology, who, at this time, recommended continued antibiotics. Because there is no evidence of obstruction of stones, no surgical intervention was required. It was recommended by the urologist that the patient be followed up outpatient with primary care provider to establish care with also nephrology, to consider starting treatment with potassium citrate to prevent further stone formation. With pain medication and antibiotic, her symptoms slowly improved. She was found to have asymptomatic hypotension and asymptomatic bradycardia, which the patient reports is her baseline. Normally, she runs a systolic blood pressure of 80 and also heart rate in the 40s. Because of her improved condition, she was amenable to be discharged on 09/27/2016. PHYSICAL EXAMINATION: At the time of discharge: VITAL SIGNS: Blood pressure 118/54, heart rate 64, temperature 97.1, respiration rate 14, pulse oximetry 99% on room air. GENERAL : The patient was lying in bed comfortable, no acute distress. Alert, awake, oriented times three. Pleasant, cooperative. HEENT: Normocephalic, atraumatic. Moist oral mucosa. NECK: Supple. Trachea midline. CHEST: Symmetric chest rise. No accessory muscle use. Breath sounds were clear to auscultation bilaterally. HEART: Regular rate and rhythm. S1, S2 present. ABDOMEN : Soft. Not significantly tender to palpation. No guarding. No rebound. No peritoneal signs. MUSCULOSKELETAL: Positive for persistent left cervical tenderness, but improved. SKIN: She has multiple tattoos throughout her body. EXTREMITIES: No pedal edema. Pedal pulses present bilaterally. LABORATORY DATA: WBC 5.4, hemoglobin 12.8, hematocrit 39.1, platelets 225. Sodium 144, potassium 4.2, chloride 115, carbon dioxide 22, BUN 9, creatinine 0.6, glucose 108, magnesium 1.8, calcium 8.1. DISPOSITION: Home. CONDITION: Stable. ACTIVITY: As tolerated. DIET: Regular, encourage yogurt intake and consider probiotics. FOLLOWUP: Followup with Zo Rome early next week. She also will need referral from her primary care provider to refer the patient to urology and nephrology for further management of medullary sponge kidney. DISCHARGE MEDICATIONS: - Tylenol 650 mg by mouth every four hours as needed New medication: - Cefdinir 300 mg by mouth twice a day - nicotine patch transdermal daily - Percocet one tablet as needed for pain Continue the following home medications: - Zofran 4 mg twice a day prn The patient is instructed to return to the hospital if she has worsening with her symptoms or anything else concerning to patient and family. This was explained to the patient at the time of discharge and all questions answered. Time spent 35 minutes. My preceptor for this patient encounter was Dr. Mata. The preceptor was physically present in the building during the encounter and was fully available. As needed, all aspects of the patient interview, examination, medical decision making process, and medical care plan development were reviewed and approved by the preceptor. The preceptor is aware and concurs with the plan as stated in the body of this note and will attest to such by his/her cosignature.
--- NOTE | 2016-09-28 00:57 | EDDOCDS ---
Nurse's Notes [facility] Name: Gi Alvarez Age: 36 yrs Sex: Female : 1980 Arrival Date: 09/25/2016 Time: 17:41 Bed 5 Private MD: Other - Complete Info On Cds Diagnosis: Unspecified abdominal pain;Hypotension, unspecified Presentation: 09/25 17:48 Presenting complaint: Patient states: Sent over my Dr Schuler's because of likely kidney jo3 stones. Has a MSK and has had multiple kidney stones in the past. Having back and abdominal pain of left side. Acute neurological deficits are not present. Mechanism of Injury: No Mechanism of Injury. Adult Sepsis Screening: The patient does not have new or worsening altered mentation. Patient's respiratory rate is less than 22. Systolic blood pressure is less than or equal to 100 (1 point). Patient has a qSOFA score of 0- Negative Sepsis Screen. Suicide/Homicide risk assessment- the patient denies having any suicidal and/or homicidal ideations and does not present with any other emotional, behavioral or mental health complaints. Status: The patient is a dependent. Transition of care: patient was not received from another setting of care. 17:48 Acuity: JAROD Level 3 jo3 17:48 Method Of Arrival: Walkin/Carried/Asstd jo3 Triage Assessment: 17:52 General: Appears in no apparent distress, uncomfortable, Behavior is appropriate for jo3 age, cooperative. Pain: Pain currently is 8 out of 10 on a pain scale. HIV screening NA for this visit Offered previously. Neurological: Level of Consciousness is awake, alert, Oriented to person, place, time. Respiratory: Airway is patent Respiratory effort is even, unlabored. Derm: Skin is pink, warm & dry. MANAGER STRATEGIC: 17:52 LMP 07/2016, menses irregular jo3 Historical: - Allergies: No known drug Allergies; - Home Meds: 1. Cipro 500 mg Oral tab 1 tab every 12 hours 2. Zofran (as hydrochloride) 4 mg Oral tab every 12 hours - PMHx: MSK; kidney stones; frequent UTI; - PSHx: Tubal ligation; kidney stone removal; - Social history: Smoking status: Patient uses tobacco products, light tobacco smoker. No barriers to communication noted, The patient speaks fluent Telugu, Speaks appropriately for age. - Family history: Not pertinent. - : The pt / caregiver states he / she is not on anticoagulants. Home medication list is obtained from the patient. - Exposure Risk Screening:: None identified. Screenin:28 Screening information is obtained from the patient. Fall risk: No risks identified. cf2 Assistance ADL's: requires no assistance with activities of daily living. Abuse/DV Screen: The patient / caregiver reports he/she is: not in a situation that causes fear, pain or injury. Nutritional screening: No deficits noted. Advance Directives: Further advance directive information is declined. home support is adequate. Assessment: 18:46 General: Appears in no apparent distress, uncomfortable, Behavior is appropriate for ead age, cooperative. Pain: Location: posterior aspect of left lateral abdomen and anterior aspect of left lateral abdomen Pain currently is 8 out of 10 on a pain scale. Neurological: No deficits noted. Respiratory: Airway is patent Respiratory effort is even, unlabored. GI: Abdomen is non- distended Bowel sounds present X 4 quads. Abd is soft X 4 quads Abd is tender to palpation X 4 quads. Reports lower abdominal pain, upper abd pain, nausea, vomiting. : Denies burning with urination, pain with urination. Derm: Skin is pink, warm & dry. Musculoskeletal: Reports pain in posterior aspect of left lateral abdomen and anterior aspect of left lateral abdomen. 22:14 General: Patient states pain is returning. Patient medicated with Percocet 5/325 1 tab cf2 per admission orders and given a dinner tray. Will continue to monitor. 23:50 General: Patient with complaint of increasing flank pain. Dr GEIGER called and per Dr Geiger cf2 give Percoct 5/325 1 tab PO now x's 1. Patient medicated per md orders. Report to KIANA Powell, on Peds floor.. Vital Signs: 17:43 BP 98 / 54; Pulse 70; Resp 18 S; Temp 98.5(O); Pulse Ox 100% on R/A; Weight 56.7 kg gr2 (R); Height 5 ft. 0 in. (152.40 cm) (R); Pain 6/10; 18:24 BP 99 / 62 (auto/); ead 18:26 Pulse 62 MON; Resp 16; Pulse Ox 97% on R/A; ead 18:39 BP 87 / 54 (auto/); ead 18:39 Pulse 60 MON; Pulse Ox 96% ; ead 18:44 BP 82 / 53 (auto/); ead 18:44 Pulse 52 MON; Pulse Ox 97% ; ead 18:55 BP 86 / 54 LA Supine (man/); ead 18:58 BP 88 / 52 (auto/); ead 18:58 Pulse 52 MON; Resp 16; Pulse Ox 95% on R/A; ead 19:00 Pain 6/10; ead 19:24 BP 91 / 50 (auto/); cf2 19:24 Pulse 84 MON; Pulse Ox 86% ; cf2 19:27 Pulse 48 MON; Pulse Ox 100% ; cf2 19:27 BP 93 / 61; Pulse 62; Resp 16; Temp 98.8; Pulse Ox 99% on R/A; Pain 8/10; cf2 19:28 Pulse 54 MON; Pulse Ox 99% ; cf2 20:42 BP 89 / 53 (auto/); cf2 17:43 Body Mass Index 24.41 (56.70 kg, 152.40 cm) gr2 Vitals: 17:43 Log In Time: September 25, 2016 at 17:43. gr2 ED Course: 17:42 Patient visited by Katherine Hanson. gr2 17:42 Patient moved to Waiting gr2 17:43 Other - Complete Info On Cds is Private Physician. gr2 17:44 Patient visited by Katherine Hanson. gr2 17:44 Patient moved to Pre RCE gr2 17:50 Triage Initiated jo3 17:54 Patient visited by Jackie Pan RN. jo3 18:02 Grecia Orellana,RN is Primary Nurse. ck1 18:02 Patient moved to 5 ck1 18:03 Finn Alonzo MD is Attending Physician. br1 18:09 Patient visited by Finn Alonzo MD. br1 18:28 Patient visited by Grecia Orellana,KIANA. ead 18:28 Urine Culture Sent. ead 18:28 Urine Test-In Lab Sent. ead 18:28 Urinalysis Sent. ead 18:28 CBC with Diff Sent. ead 18:28 BMP Sent. ead 18:28 Liver Profile Sent. ead 18:28 Lipase Sent. ead 18:29 Inserted peripheral IV: 18gauge IV in right antecubital area and blood collected. ead Patient tolerated the procedure well. 18:45 Patient visited by Grecia Orellana RN. eatadeo 18:58 Patient visited by Grecia Orellana RN. ead 19:01 Patient visited by Grecia Orellana RN. ead 19:02 [facility] Payment Agreement was scanned into [employer] and attached to record. zo 19:06 Primary Nurse role handed off by Grecia Orellana RN cf2 19:06 Clarisa Perez RN is Primary Nurse. cf2 19:06 Patient visited by Clarisa Perez RN. cf2 19:28 The patient / caregiver is instructed regarding the plan of care and ED course. Patient cf2 has correct armband on for positive identification. Placed in gown. Bed in low position. Call light in reach. Side rails up X 1. Side rails up X2. telemetry monitor on. Pulse ox on. NIBP on. Door closed. Noise minimized. Visitors limited. Lights dimmed. Moved to private room. Verbal reassurance given. Warm blanket given. Pillow given. Head of bed elevated. Diet: Patient is NPO. 19:28 No procedures done that require assistance. cf2 19:46 Patient visited by Clarisa Perez RN. cf2 20:18 Patient visited by Clarisa Perez RN. cf2 20:34 Patient visited by Clarisa Perez RN. cf2 20:59 Sunita Geiger is Hospitalizing Provider. br1 21:09 Patient visited by Clarisa Perez RN. cf2 21:32 CT ABD & PELVIS: No Contrast Returned. EDMS 22:23 Patient visited by Clarisa Perez RN. cf2 22:49 Patient visited by Clarisa Perez RN. cf2 22:58 Patient visited by Clarisa Perez RN. cf2 23:21 Patient visited by Clarisa Perez RN. cf2 23:22 Patient visited by Clarisa Perez RN. cf2 23:49 Patient visited by Clarisa Perez RN. cf2 09/26 10:07 T-Sheet-- Draft Copy was scanned into [employer] and attached to record. gb Administered Medications: 09/25 18:35 Drug: Ondansetron 4 mg [ondansetron HCl 2 mg/mL intravenous solution (2 mL)] Route: ead IVP; Site: right antecubital; 19:00 Follow up: Response: Nausea is decreased; No Adverse Reaction ead 18:35 Drug: NS 0.9% 1000 ml [sodium chloride 0.9 % intravenous solution] Route: IV; Rate: ead bolus; Site: right antecubital; 18:37 Drug: morphine 4 mg [morphine 4 mg/mL intravenous cartridge (1 mL)] Route: IVP; Site: ead right antecubital; 19:00 Follow up: Pain 6/10 Adult; Response: Confirmed pt not driving.; No Adverse Reaction; ead Pain is decreased 19:05 Drug: NS 0.9% 1000 ml [sodium chloride 0.9 % intravenous solution] Route: IV; Rate: ead bolus; Site: right antecubital; 20:00 Drug: ketorolac 30 mg [ketorolac 30 mg/mL (1 mL) injection solution (1 mL)] Route: IVP; cf2 Site: left antecubital; 20:09 Follow up: Response: Pain is decreased cf2 21:50 Drug: oxyCODONE-acetaminophen 1 tabs [oxycodone-acetaminophen 5 mg-325 mg tablet (1 cf2 tabs)] Route: PO; 23:52 Follow up: Response: Pain is decreased cf2 23:52 Drug: oxyCODONE-acetaminophen 1 tabs [oxycodone-acetaminophen 5 mg-325 mg tablet (1 cf2 tabs)] Route: PO; 23:52 Follow up: Response: Pt left department before re-evaluation is appropriate cf2 Order Results: Lab Order: CBC with Diff; SPEC'M 09/25/16 18:25 Test: WHITE BLOOD COUNT; Value: 5.8; Range: 4.0-10.0; Units: K/mm3; Status: F Test: RED BLOOD COUNT; Value: 4.44; Range: 4.00-5.40; Units: M/mm3; Status: F Test: HEMOGLOBIN; Value: 14.3; Range: 12.0-16.0; Units: g/dl; Status: F Test: HEMATOCRIT; Value: 42.8; Range: 36.0-47.0; Units: %; Status: F Test: MEAN CORPUSCULAR VOLUME; Value: 96.4; Range: 80.0-96.0; Abnormal: Above high normal; Units: fl; Status: F Test: MEAN CORPUSCULAR HEMOGLOBIN; Value: 32.3; Range: 27.0-33.0; Units: pg; Status: F Test: MEAN CORPUSCULAR HGB CONC; Value: 33.5; Range: 32.0-36.5; Units: g/dl; Status: F Test: RED CELL DISTRIBUTION WIDTH; Value: 11.9; Range: 11.5-14.5; Units: %; Status: F Test: PLATELET COUNT, AUTOMATED; Value: 273; Range: 150-450; Units: k/mm3; Status: F Test: NEUTROPHILS %; Value: 45.5; Range: 36.0-66.0; Units: %; Status: F Test: LYMPH %; Value: 45.5; Range: 24.0-44.0; Abnormal: Above high normal; Units: %; Status: F Test: MONO %; Value: 3.7; Range: 0.0-5.0; Units: %; Status: F Test: EOS %; Value: 2.1; Range: 0.0-3.0; Units: %; Status: F Test: BASO %; Value: 0.4; Range: 0.0-1.0; Units: %; Status: F Test: LARGE UNSTAINED CELL %; Value: 2.7; Range: 0.0-4.0; Units: %; Status: F Test: NEUTROPHILS #; Value: 2.7; Range: 1.8-7.7; Units: K/mm3; Status: F Test: LYMPH #; Value: 2.7; Range: 1.5-4.5; Units: K/mm3; Status: F Test: MONO #; Value: 0.2; Range: 0.0-0.8; Units: K/mm3; Status: F Test: EOS #; Value: 0.1; Range: 0.0-0.50; Units: K/mm3; Status: F Test: BASO #; Value: 0.0; Range: 0.0-0.2; Units: K/mm3; Status: F Test: LARGE UNSTAINED CELL #; Value: 0.2; Range: 0.0-0.4; Units: K/mm3; Status: F Lab Order: BMP; SPEC'M 09/25/16 18:25 Test: GLUCOSE, FASTING; Value: 83; Range: 70-105; Units: MG/DL; Status: F Test: BLOOD UREA NITROGEN; Value: 16; Range: 7-18; Units: MG/DL; Status: F Test: CREATININE FOR GFR; Value: 0.67; Range: 0.55-1.02; Units: MG/DL; Status: F Test: GLOMERULAR FILTRATION RATE; Value: > 60.0; Range: >60; Status: F Test: SODIUM LEVEL; Value: 143; Range: 136-145; Units: MEQ/L; Status: F Test: POTASSIUM SERUM; Value: 3.6; Range: 3.5-5.1; Units: MEQ/L; Status: F Test: CHLORIDE LEVEL; Value: 109; Range: 98-107; Abnormal: Above high normal; Units: MEQ/L; Status: F Test: CARBON DIOXIDE LEVEL; Value: 27; Range: 21-32; Units: MEQ/L; Status: F Test: ANION GAP; Value: 7; Range: 8-16; Abnormal: Below low normal; Units: MEQ/L; Status: F Test: CALCIUM LEVEL; Value: 8.7; Range: 8.5-10.1; Units: MG/DL; Status: F Test Note: ; Units are mL/min/1.73 m2 Chronic Kidney Disease Staging per NKF: Stage I & II GFR >=60 Normal to Mildly Decreased Stage III GFR 30-59 Moderately Decreased Stage IV GFR 15-29 Severely Decreased Stage V GFR <15 Very Little GFR Left ESRD GFR <15 on FELT CUTTER Lab Order: Liver Profile; SPEC'M 09/25/16 18:25 Test: AST/SGOT; Value: 15; Range: 15-37; Units: U/L; Status: F Test: ALT/SGPT; Value: 18; Range: 12-78; Units: U/L; Status: F Test: ALKALINE PHOSPHATASE; Value: 90; Range: 45-117; Units: U/L; Status: F Test: BILIRUBIN,TOTAL; Value: 0.6; Range: 0.2-1.0; Units: MG/DL; Status: F Test: BILIRUBIN,DIRECT; Value: < 0.1; Range: 0.0-0.2; Units: MG/DL; Status: F Test: TOTAL PROTEIN; Value: 7.0; Range: 6.4-8.2; Units: GM/DL; Status: F Test: ALBUMIN; Value: 4.1; Range: 3.2-5.2; Units: GM/DL; Status: F Test: ALBUMIN/GLOBULIN RATIO; Value: 1.41; Range: 1.00-1.93; Status: F Lab Order: Lipase; SPEC'M 09/25/16 18:25 Test: LIPASE; Value: 125; Range: 73-393; Units: U/L; Status: F Lab Order: Urinalysis; SPEC'M 09/25/16 18:25 Test: APPEARANCE, URINE; Value: HAZY; Range: CLEAR; Status: F Test: COLOR, URINE; Value: YELLOW; Range: YELLOW; Status: F Test: PH,URINE; Value: 5.0; Range: 5.0-9.0; Units: UNITS; Status: F Test: SPECIFIC GRAVITY URINE AUTO; Value: 1.031; Range: 1.002-1.035; Status: F Test: PROTEIN, URINE AUTO; Value: 1+; Range: NEGATIVE; Abnormal: Above high normal; Units: mg/dL; Status: F Test: GLUCOSE, URINE (UA) AUTO; Value: NEGATIVE; Range: NEGATIVE; Units: mg/dL; Status: F Test: KETONE, URINE AUTO; Value: NEGATIVE; Range: NEGATIVE; Units: mg/dL; Status: F Test: UROBILINOGEN, URINE AUTO; Value: 0.2; Range: 0.0-2.0; Units: mg/dL; Status: F Test: BILIRUBIN, URINE AUTO; Value: NEGATIVE; Range: NEGATIVE; Status: F Test: NITRITE, URINE AUTO; Value: NEGATIVE; Range: NEGATIVE; Status: F Test: LEUKOCYTE ESTERASE, URINE AUTO; Value: NEGATIVE; Range: NEGATIVE; Status: F Test: BLOOD, URINE BLOOD; Value: 1+; Range: NEGATIVE; Abnormal: Above high normal; Status: F Test: SPERM, URINE AUTO; Range: NONE; Status: I Test: WBC, URINE AUTO; Value: 2; Range: 0-3; Units: /HPF; Status: F Test: RBC, URINE AUTO; Value: 6; Range: 0-3; Abnormal: Above high normal; Units: /HPF; Status: F Test: BACTERIA, URINE AUTO; Value: NEGATIVE; Range: NEGATIVE; Status: F Test: SQUAMOUS EPITHELIAL CELL UR AU; Value: 11; Range: 0-6; Units: /HPF; Status: F Test: MUCUS, URINE; Value: LARGE; Range: NEGATIVE; Status: F Test: HYALINE CAST, URINE AUTO; Value: 0; Range: 0-1; Units: /LPF; Status: F Lab Order: Urine Test-In Lab; SPEC'M 09/25/16 18:25 Test: URINE PREG TEST; Value: NEGATIVE; Range: NEGATIVE; Status: F Radiology Order: CT ABD & PELVIS: No Contrast Test: CT ABD & PELVIS: No Contrast REASON FOR EXAMINATION: Renal colic; ; CLINICAL STATEMENT: Renal colic; TECHNIQUE: CT of the abdomen and pelvis without intravenous contrast. Post imaging 3D technique was e; mployed to obtain multiplanar reformats in coronal and sagittal projections.; COMPARISON: None; FINDINGS:; Visualized Lower Thorax : Lung bases are clear. Heart unremarkable.; Kidneys: Normal in size with multiple bilateral stones measuring up to 6 mm in interpole without hydr; oureteronephrosis.; Bladder : No stones or diverticula.; Liver: Normal in size with smooth contours.; Biliary system: Status post cholecystectomy with no biliary ductal dilatation or calcified biliary st; ones.; Pancreas: Unremarkable.; Spleen: Unremarkable.; Adrenal glands: Unremarkable.; Bowel: Normal caliber. No wall thickening appreciated.; Uterus/adnexa: Unremarkable.; Lymph nodes: No enlarged lymphadenopathy.; Vasculature : No aneurysm .; Peritoneum/Mesentery/Retroperitoneum : No ascites. No extraluminal air.; Abdominal wall: No hernias; Osseous Structures : No suspicious lesions or acute fracture. Mild multilevel degenerative changes of; the spine.; Soft Tissues : No suspicious mass or acute inflammatory process.; Spinal canal/Visualized sacral foramina : No enlarged mass.; IMPRESSION:; Multiple bilateral stones measuring up to 6 mm in interpole without hydroureteronephrosis.; Thank you for the kind referral of this patient.; ; Outcome: 20:59 Decision to Hospitalize by Provider. br1 23:52 Discharge Assessment: Patient awake, alert and oriented x 3. No cognitive and/or cf2 functional deficits noted. Patient verbalized understanding of disposition instructions. Patient awake and alert. Oriented to person, place and time. patient administered narcotics - yes. Patient was admitted to the hospital or transferred to another facility. The following High Risk Discharge criteria are identified: None. Admitted to Pediatrics. Condition: stable. CT Study completed. Property :Personal belongings accompany Pt. 23:55 Patient left the ED. cf2 Signatures: Dispatcher [employer] EDMS Diana Resendiz, Reg Reg Ofelia Cooper,RN RN ck1 Jackie Pan,RN RN jo3 Anurag Pinto Brian, MD MD br1 Katherine Hanson gr2 Grecia Orellana RN RN ead Familetti-Gonzalez, Christina, RN RN cf2 Chart Complete MARY ELLEN
--- NOTE | 2016-09-28 00:57 | EDDOCDS ---
Physician Documentation [facility] Name: Gi Alvarez Age: 36 yrs Sex: Female : 1980 Arrival Date: 09/25/2016 Time: 17:41 Bed 5 Private MD: Shoshana - Complete Info On Cds Disposition: 09/25/16 20:59 Hospitalization ordered by Sunita Harmon for Inpatient Admission. Preliminary diagnosis are Unspecified abdominal pain, Hypotension, unspecified. - Bed requested for M PED. - Status is Inpatient Admission. cf2 - Condition is Stable. - Problem is new. - Symptoms are unchanged. Historical: - Allergies: No known drug Allergies; - Home Meds: 1. Cipro 500 mg Oral tab 1 tab every 12 hours 2. Zofran (as hydrochloride) 4 mg Oral tab every 12 hours - PMHx: MSK; kidney stones; frequent UTI; - PSHx: Tubal ligation; kidney stone removal; - Social history: Smoking status: Patient uses tobacco products, light tobacco smoker. No barriers to communication noted, The patient speaks fluent Bel[place]an, Speaks appropriately for age. - Family history: Not pertinent. - : The pt / caregiver states he / she is not on anticoagulants. Home medication list is obtained from the patient. - Exposure Risk Screening:: None identified. 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 0 in. (152.40 cm) (R); Pain 6/10; 18:24 BP 99 / 62 (auto/); ead 18:26 Pulse 62 MON; Resp 16; Pulse Ox 97% on R/A; ead 18:39 BP 87 / 54 (auto/); ead 18:39 Pulse 60 MON; Pulse Ox 96% ; ead 18:44 BP 82 / 53 (auto/); ead 18:44 Pulse 52 MON; Pulse Ox 97% ; ead 18:55 BP 86 / 54 LA Supine (man/); ead 18:58 BP 88 / 52 (auto/); ead 18:58 Pulse 52 MON; Resp 16; Pulse Ox 95% on R/A; ead 19:00 Pain 6/10; ead 19:24 BP 91 / 50 (auto/); cf2 19:24 Pulse 84 MON; Pulse Ox 86% ; cf2 19:27 Pulse 48 MON; Pulse Ox 100% ; cf2 19:27 BP 93 / 61; Pulse 62; Resp 16; Temp 98.8; Pulse Ox 99% on R/A; Pain 8/10; cf2 19:28 Pulse 54 MON; Pulse Ox 99% ; cf2 20:42 BP 89 / 53 (auto/); cf2 17:43 Body Mass Index 24.41 (56.70 kg, 152.40 cm) gr2 MDM: 18:03 IV Saline Lock ordered. br1 18:04 CBC with Diff Ordered. EDMS 18:05 BMP Ordered. EDMS 18:05 Liver Profile Ordered. EDMS 18:05 Lipase Ordered. EDMS 18:06 Urinalysis Ordered. EDMS 18:06 Urine Test-In Lab Ordered. EDMS 18:06 Urine Culture Ordered. EDMS 18:10 morphine 4 mg IVP once ordered. br1 18:10 Ondansetron 4 mg IVP once ordered. br1 18:10 NS 0.9% 1000 ml IV at bolus once ordered. br1 18:22 Undress patient ordered. br1 18:56 Financial registration complete. zo 18:57 NS 0.9% 1000 ml IV at bolus once ordered. br1 18:57 Urine Test-In Lab Reviewed. br1 19:02 [facility] Payment Agreement was scanned into [employer] and attached to record. zo 19:22 CBC with Diff Reviewed. br1 19:22 Urinalysis Reviewed. br1 19:22 Urine Test-In Lab Reviewed. br1 19:24 CT ABD & PELVIS: No Contrast Ordered. EDMS 19:51 BMP Reviewed. br1 19:51 Liver Profile Reviewed. br1 19:51 Lipase Reviewed. br1 19:51 ketorolac 30 mg IVP once ordered. br1 20:57 Lactic Acid (Leger tube on ice) Ordered. EDMS 20:57 BED REQUEST+ADM ordered. EDMS 21:21 COMPLETE BLOOD COUNT Ordered. EDMS 21:21 BASIC METABOLIC PROFILE Ordered. EDMS 21:21 MAGNESIUM LEVEL Ordered. EDMS 21:21 LACTIC ACID LEVEL, LACTATE Ordered. EDMS 21:25 Admission / Observation Status ordered. EDMS 21:25 REGULAR DIET ordered. EDMS 22:14 oxyCODONE-acetaminophen 5 mg-325 mg 1 tabs PO once ordered. cf2 23:52 oxyCODONE-acetaminophen 5 mg-325 mg 1 tabs PO once; orders from dr Harmon ordered. cf2 09/26 10:07 T-Sheet-- Draft Copy was scanned into [employer] and attached to record. gb Administered Medications: 09/25 18:35 Drug: Ondansetron 4 mg [ondansetron HCl 2 mg/mL intravenous solution (2 mL)] Route: ead IVP; Site: right antecubital; 19:00 Follow up: Response: Nausea is decreased; No Adverse Reaction ead 18:35 Drug: NS 0.9% 1000 ml [sodium chloride 0.9 % intravenous solution] Route: IV; Rate: ead bolus; Site: right antecubital; 18:37 Drug: morphine 4 mg [morphine 4 mg/mL intravenous cartridge (1 mL)] Route: IVP; Site: ead right antecubital; 19:00 Follow up: Pain 6/10 Adult; Response: Confirmed pt not driving.; No Adverse Reaction; ead Pain is decreased 19:05 Drug: NS 0.9% 1000 ml [sodium chloride 0.9 % intravenous solution] Route: IV; Rate: ead bolus; Site: right antecubital; 20:00 Drug: ketorolac 30 mg [ketorolac 30 mg/mL (1 mL) injection solution (1 mL)] Route: IVP; cf2 Site: left antecubital; 20:09 Follow up: Response: Pain is decreased cf2 21:50 Drug: oxyCODONE-acetaminophen 1 tabs [oxycodone-acetaminophen 5 mg-325 mg tablet (1 cf2 tabs)] Route: PO; 23:52 Follow up: Response: Pain is decreased cf2 23:52 Drug: oxyCODONE-acetaminophen 1 tabs [oxycodone-acetaminophen 5 mg-325 mg tablet (1 cf2 tabs)] Route: PO; 23:52 Follow up: Response: Pt left department before re-evaluation is appropriate cf2 Signatures: Dispatcher [employer] EDMS Diana Resendiz, Brodie Reg Jackie Jiménez RN RN jo3 Anurag Pinto Kristopher, WOVEN WOOD SHADE ASSEMBLER WOVEN WOOD SHADE ASSEMBLER kb5 Ilia Pickett, DO mm11 Finn Alonzo MD MD br1 Clarisa Perez RN RN cf2 Nate Gambino RN RN sa Dunaway, Grecia veloz The chart was reviewed and I authenticate all verbal orders and agree with the evaluation and treatment provided.Attachments: 19:02 [facility] Payment Agreement zo 09/26 10:07 T-Sheet-- Draft Copy gb Chart Complete MTDD
--- NOTE | 2016-09-28 00:57 | EDDOCDS ---
Physician Documentation [facility] Name: Gi Alvarez Age: 36 yrs Sex: Female : 1980 Arrival Date: 09/25/2016 Time: 17:41 Bed 5 Private MD: Shoshana - Complete Info On Cds Disposition: 09/25/16 20:59 Hospitalization ordered by Sunita Harmon for Inpatient Admission. Preliminary diagnosis are Unspecified abdominal pain, Hypotension, unspecified. - Bed requested for M PED. - Status is Inpatient Admission. cf2 - Condition is Stable. - Problem is new. - Symptoms are unchanged. Historical: - Allergies: No known drug Allergies; - Home Meds: 1. Cipro 500 mg Oral tab 1 tab every 12 hours 2. Zofran (as hydrochloride) 4 mg Oral tab every 12 hours - PMHx: MSK; kidney stones; frequent UTI; - PSHx: Tubal ligation; kidney stone removal; - Social history: Smoking status: Patient uses tobacco products, light tobacco smoker. No barriers to communication noted, The patient speaks fluent Slovak, Speaks appropriately for age. - Family history: Not pertinent. - : The pt / caregiver states he / she is not on anticoagulants. Home medication list is obtained from the patient. - Exposure Risk Screening:: None identified. 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 0 in. (152.40 cm) (R); Pain 6/10; 18:24 BP 99 / 62 (auto/); ead 18:26 Pulse 62 MON; Resp 16; Pulse Ox 97% on R/A; ead 18:39 BP 87 / 54 (auto/); ead 18:39 Pulse 60 MON; Pulse Ox 96% ; ead 18:44 BP 82 / 53 (auto/); ead 18:44 Pulse 52 MON; Pulse Ox 97% ; ead 18:55 BP 86 / 54 LA Supine (man/); ead 18:58 BP 88 / 52 (auto/); ead 18:58 Pulse 52 MON; Resp 16; Pulse Ox 95% on R/A; ead 19:00 Pain 6/10; ead 19:24 BP 91 / 50 (auto/); cf2 19:24 Pulse 84 MON; Pulse Ox 86% ; cf2 19:27 Pulse 48 MON; Pulse Ox 100% ; cf2 19:27 BP 93 / 61; Pulse 62; Resp 16; Temp 98.8; Pulse Ox 99% on R/A; Pain 8/10; cf2 19:28 Pulse 54 MON; Pulse Ox 99% ; cf2 20:42 BP 89 / 53 (auto/); cf2 17:43 Body Mass Index 24.41 (56.70 kg, 152.40 cm) gr2 MDM: 18:03 IV Saline Lock ordered. br1 18:04 CBC with Diff Ordered. EDMS 18:05 BMP Ordered. EDMS 18:05 Liver Profile Ordered. EDMS 18:05 Lipase Ordered. EDMS 18:06 Urinalysis Ordered. EDMS 18:06 Urine Test-In Lab Ordered. EDMS 18:06 Urine Culture Ordered. EDMS 18:10 morphine 4 mg IVP once ordered. br1 18:10 Ondansetron 4 mg IVP once ordered. br1 18:10 NS 0.9% 1000 ml IV at bolus once ordered. br1 18:22 Undress patient ordered. br1 18:56 Financial registration complete. zo 18:57 NS 0.9% 1000 ml IV at bolus once ordered. br1 18:57 Urine Test-In Lab Reviewed. br1 19:02 [facility] Payment Agreement was scanned into [employer] and attached to record. zo 19:22 CBC with Diff Reviewed. br1 19:22 Urinalysis Reviewed. br1 19:22 Urine Test-In Lab Reviewed. br1 19:24 CT ABD & PELVIS: No Contrast Ordered. EDMS 19:51 BMP Reviewed. br1 19:51 Liver Profile Reviewed. br1 19:51 Lipase Reviewed. br1 19:51 ketorolac 30 mg IVP once ordered. br1 20:57 Lactic Acid (Leger tube on ice) Ordered. EDMS 20:57 BED REQUEST+ADM ordered. EDMS 21:21 COMPLETE BLOOD COUNT Ordered. EDMS 21:21 BASIC METABOLIC PROFILE Ordered. EDMS 21:21 MAGNESIUM LEVEL Ordered. EDMS 21:21 LACTIC ACID LEVEL, LACTATE Ordered. EDMS 21:25 Admission / Observation Status ordered. EDMS 21:25 REGULAR DIET ordered. EDMS 22:14 oxyCODONE-acetaminophen 5 mg-325 mg 1 tabs PO once ordered. cf2 23:52 oxyCODONE-acetaminophen 5 mg-325 mg 1 tabs PO once; orders from dr Harmon ordered. cf2 09/26 10:07 T-Sheet-- Draft Copy was scanned into [employer] and attached to record. gb Administered Medications: 09/25 18:35 Drug: Ondansetron 4 mg [ondansetron HCl 2 mg/mL intravenous solution (2 mL)] Route: ead IVP; Site: right antecubital; 19:00 Follow up: Response: Nausea is decreased; No Adverse Reaction ead 18:35 Drug: NS 0.9% 1000 ml [sodium chloride 0.9 % intravenous solution] Route: IV; Rate: ead bolus; Site: right antecubital; 18:37 Drug: morphine 4 mg [morphine 4 mg/mL intravenous cartridge (1 mL)] Route: IVP; Site: ead right antecubital; 19:00 Follow up: Pain 6/10 Adult; Response: Confirmed pt not driving.; No Adverse Reaction; ead Pain is decreased 19:05 Drug: NS 0.9% 1000 ml [sodium chloride 0.9 % intravenous solution] Route: IV; Rate: ead bolus; Site: right antecubital; 20:00 Drug: ketorolac 30 mg [ketorolac 30 mg/mL (1 mL) injection solution (1 mL)] Route: IVP; cf2 Site: left antecubital; 20:09 Follow up: Response: Pain is decreased cf2 21:50 Drug: oxyCODONE-acetaminophen 1 tabs [oxycodone-acetaminophen 5 mg-325 mg tablet (1 cf2 tabs)] Route: PO; 23:52 Follow up: Response: Pain is decreased cf2 23:52 Drug: oxyCODONE-acetaminophen 1 tabs [oxycodone-acetaminophen 5 mg-325 mg tablet (1 cf2 tabs)] Route: PO; 23:52 Follow up: Response: Pt left department before re-evaluation is appropriate cf2 Signatures: Dispatcher [employer] EDMS Diana Resendiz, Brodie Reg Jackie Jiménez RN RN jo3 Anurag Pinto Kristopher, HEALTH INFORMATION MANAGER HEALTH INFORMATION MANAGER kb5 Ilia Pickett, DO mm11 Finn Alonzo MD MD br1 Clarisa Perez RN RN cf2 Nate Gambino RN RN sa Dunaway, Grecia veloz The chart was reviewed and I authenticate all verbal orders and agree with the evaluation and treatment provided.Attachments: 19:02 [facility] Payment Agreement zo 09/26 10:07 T-Sheet-- Draft Copy gb Chart Complete MTDD
== END 2016-09-27 09:25 | disposition home or self-care (01) ==
LOC: M ED 17:41 → M PED 21:20 → M ED INP 21:21 → M PED 09-26 00:23
PROVIDERS: ADMIT Hospitalist; ATTEND Internal Medicine
DX: R10.9 Unspecified abdominal pain (principal); R30.0 Dysuria; Q61.5 Medullary cystic kidney; I95.9 Hypotension, unspecified; R00.1 Bradycardia, unspecified; N20.0 Calculus of kidney; R11.2 Nausea with vomiting, unspecified; G47.00 Insomnia, unspecified; F17.210 Nicotine dependence, cigarettes, uncomplicated; Z87.442 Personal history of urinary calculi; Z87.440 Personal history of urinary (tract) infections; Z79.2 Long term (current) use of antibiotics; Z79.899 Other long term (current) drug therapy; Z23 Encounter for immunization
CPT/HCPCS: 36415; 74176; 80048; 80076; 81001; 83605; 83690; 83735; 84703; 85025; 85027; 87086; 90471; 90686; 96372; 96374; 96375; 96376; 99285; J0696; J1650; J1885; J2405

== ENCOUNTER → 2016-09-25 | Outpatient (REF) | payer OTHER ==
[~2016-09-25] MED LIST: CEFD1CAP8 PO; CIPR500T89 PO; MAPA325T2 PO; NICO14PA TD; PERCOCET PO; ZOFR20TA PO
== END | disposition home or self-care (01) ==
LOC: M SFHCLERA 15:27
PROVIDERS: ATTEND Nurse Practitioner Family
DX: Z53.8 Procedure and treatment not carried out for other reasons (principal); R30.0 Dysuria

== ENCOUNTER → 2016-10-22 | Outpatient (REF) | payer OTHER ==
[~2016-10-22] MED LIST changes: +ALBU17IN INH; +FLOM5CAP PO
[2016-10-22 18:17] LABS: INR 0.97
[2016-10-22 20:13] LABS: CONTROL LINE HCG INT CTR LINE PRESENT
== END ==
LOC: M SMT 16:45
PROVIDERS: ATTEND Nurse Practitioner Women's Health
DX: Z01.812 Encounter for preprocedural laboratory examination (principal); N20.0 Calculus of kidney

== ENCOUNTER → 2016-10-25 | Day surgery (SDC) | payer OTHER ==
[~2016-10-25] VITALS: Ht 152.4 cm; Wt 56.7 kg
[~2016-10-25] MED LIST changes: +CONRAY-60 60% 50ML VIAL (Q9961) As Ordered ONE; +HYDROmorphone HCL 2 MG/ML 1ML VIAL (J1170) As Ordered ONE; +KETOROLAC 60 MG/2 ML VIAL (J1885) As Ordered ONE; +LR 1,000 ML IV SCH; +MIDAZOLAM INJ 2 MG/2 ML VIAL (J2250) As Ordered ONE; +ONDANSETRON 4MG/2ML VIAL (J2405) As Ordered ONE; +ONDANSETRON 4MG/2ML VIAL (J2405) IV PRN; +PERCOCET 5MG/325MG TAB As Ordered ONE; +PROPOFOL 500 MG/50 ML VIAL As Ordered ONE; +dexameTHASONE 4 MG/ML 1ML VIAL (J1100) As Ordered ONE; +ePHEDrine SULFATE 25 MG/5 ML(5MG/ML) SYRINGE As Ordered ONE; +fentaNYL 100 MCG/2 ML INJECTION (J3010) As Ordered ONE
[2016-10-25] MEDS: fentaNYL 100 MCG/2 ML INJECTION (J3010) IV PRN ×4 (14:54→15:19)
--- NOTE | 2016-10-25 15:05 | REP ---
RETROGRADE PYELOGRAM: TWO VIEWS. HISTORY: Left renal stones. 15 seconds of fluoroscopy time is reported. FINDINGS: A sequence of two fluoroscopically obtained intraprocedural spot radiographs of the abdomen document bilateral ureteral stent placement. There is contrast in the renal pelvis and collecting system on the right. Signed by Loy Urbina MD 10/25/2016 04:47 P
[2016-10-25] MEDS: PERCOCET 5MG/325MG TAB PO PRN ×2 (15:24→15:59)
[2016-10-25 16:00] VITALS: BP 118/57
--- NOTE | 2016-10-27 09:07 | RO ---
DATE OF PROCEDURE: 10/25/2016 PREPROCEDURE DIAGNOSIS: Bilateral kidney stones. POSTPROCEDURE DIAGNOSIS: Bilateral kidney stones. PROCEDURE: Cystoscopy, bilateral ureteroscopy with left sided laser lithotripsy and basket extraction of stones, bilateral retrograde pyelogram with intraoperative interpretation of images, bilateral ureteral stent placement. SURGEON: Dr. Homer Wayne. MASH FILTER CLOTH CHANGER: None. ANESTHESIA: General. OPERATIVE INDICATIONS: This is a 36-year-old female with bilateral kidney stones who opted to come to the operating room today for treatment. DESCRIPTION OF PROCEDURE: The patient was brought to the operating room and general anesthesia was induced. Prophylactic antibiotics were infused. She was then placed in dorsal lithotomy position, and prepped and draped in the usual sterile fashion. A rigid cystoscope was inserted into the urethral meatus and advanced into the bladder. Once within the bladder, a wire was advanced up the left collecting system. I then advanced a ureteral access sheath over the wire up into the left collecting system and the wire was secured to the drape. The stylet was removed and I went up the left collecting system with a flexible ureteroscope. Within the left kidney, there were no free floating stones seen. There were a lot of imbedded stones which were consistent with history of nephrocalcinosis. There were two stones that appeared like they were about the fall off of the tissue and therefore I did laser those two stones with a 200 micron laser fiber and one of those stones was removed using a stone basket. All the other stones were encased within tissue and therefore I did not try to laser them given it would cause a lot of bleeding. At this point, a retrograde pyelogram was performed and was negative for hydronephrosis or extravasation. I then withdrew the ureteroscope along with the access sheath and no additional stones were seen within the ureter. I then advanced a #6-Vincentian by #22-32 cm JJ ureteral stent up into the left collecting system. The wire was then removed and there were adequate curls to the stent in the left renal pelvis and in the bladder. At this point, I turned my attention to the right collecting system and a wire was advanced up the right collecting system. I then advanced the ureteral access sheath up the right collecting system over the wire. The wire was then secured to the drape and the stylet was removed. I then went up the right ureter with a flexible ureteroscope and within the right kidney, similar findings were seen. There were no free floating stones. Once again, there were a lot of stones imbedded within tissue. This is once again significant with nephrocalcinosis. I did not see any stones that look like they were about to fall out and therefore I did not laser anything on this side as it would only cause a lot of bleeding. At this point, a retrograde pyelogram was performed and it was negative for hydronephrosis or extravasations. I then removed the ureteral access sheath and pulled the ureteroscope out and did not see any stones inside the ureter. At this point, a #6-Vincentian by #22-32 cm JJ ureteral stent was advanced over the wire up to the right collecting system. The wire was then removed and there were adequate curl to the stent in the right renal pelvis and in the bladder. The bladder was emptied of all fluid and this marked the conclusion of the procedure. The patient was then taken out of dorsal lithotomy position and awakened from anesthesia and transported to the recovery room in stable condition. ESTIMATED BLOOD LOSS: 5 mL. COMPLICATIONS: None. SPECIMEN: Kidney stone fragment. PLAN: The patient will be brought back to be seen in the clinic in a few weeks for stent removal. MARY ELLEN
== END ==
LOC: M SDC 10:39
PROVIDERS: ATTEND Urology
DX: N20.0 Calculus of kidney (principal); J45.909 Unspecified asthma, uncomplicated; Z87.442 Personal history of urinary calculi; F41.9 Anxiety disorder, unspecified; F32.9 Major depressive disorder, single episode, unspecified; G43.909 Migraine, unspecified, not intractable, without status migrainosus; F43.10 Post-traumatic stress disorder, unspecified; M54.9 Dorsalgia, unspecified; F17.210 Nicotine dependence, cigarettes, uncomplicated
CPT/HCPCS: 52352; 52356; 74420; 82360; 88300; C1726; C2617; J0690; J1100; J1170; J1885; J2250; J2405; J3010; Q9961

== ENCOUNTER 2016-11-02 11:39 | Emergency (ER) | payer OTHER ==
[~2016-11-02] VITALS: Ht 152.4 cm; Wt 56.7 kg
[~2016-11-02 11:39] MED LIST changes: -CONRAY-60 60% 50ML VIAL (Q9961) As Ordered ONE; -HYDROmorphone HCL 2 MG/ML 1ML VIAL (J1170) As Ordered ONE; -KETOROLAC 60 MG/2 ML VIAL (J1885) As Ordered ONE; -LR 1,000 ML IV SCH; -MIDAZOLAM INJ 2 MG/2 ML VIAL (J2250) As Ordered ONE; -ONDANSETRON 4MG/2ML VIAL (J2405) As Ordered ONE; -ONDANSETRON 4MG/2ML VIAL (J2405) IV PRN; -PERCOCET 5MG/325MG TAB As Ordered ONE; -PROPOFOL 500 MG/50 ML VIAL As Ordered ONE; -dexameTHASONE 4 MG/ML 1ML VIAL (J1100) As Ordered ONE; -ePHEDrine SULFATE 25 MG/5 ML(5MG/ML) SYRINGE As Ordered ONE; -fentaNYL 100 MCG/2 ML INJECTION (J3010) As Ordered ONE
[2016-11-02 13:06] LABS: CONTROL LINE UCG INT CTR LINE PRESENT
[2016-11-02 13:10] LABS: MICROSCOPIC INDICATED? MAN YES (NO)
[2016-11-02 13:15] LABS: WBC, URINE TNTC /hpf (0-3)
[2016-11-02 13:16] LABS: BACTERIA, URINE LARGE AMOUNT; MICROSCOPIC EXAM PERFORMED; RBC, URINE TNTC /hpf (0-3); SQUAMOUS EPITHELIAL CELL URINE LARGE AMOUNT /hpf (SMALL AMT)
[2016-11-02] MEDS ORDERED: ONDANSETRON 4MG/2ML VIAL (J2405) IV ONE (15:00)
[2016-11-02] MEDS ORDERED: KETOROLAC 30 MG/ML VIAL (J1885) IV ONE (15:00)
[2016-11-02 15:10] LABS: MEAN CORPUSCULAR HEMOGLOBIN 33.9 pg (27.0-33.0); MEAN CORPUSCULAR VOLUME 99.7 fl (80.0-96.0); RED CELL DISTRIBUTION WIDTH 12.4 % (11.5-14.5); WHITE BLOOD COUNT 8.8 K/mm3 (4.0-10.0)
[2016-11-02] MEDS ORDERED: NS 1,000 ML IV SCH (15:15)
[2016-11-02 16:05] LABS: ALBUMIN 3.4 GM/DL (3.2-5.2); ALBUMIN/GLOBULIN RATIO 1.26 (1.00-1.93); ALKALINE PHOSPHATASE 74 U/L (45-117); ALT/SGPT 16 U/L (12-78); ANION GAP 6 MEQ/L (8-16); AST/SGOT 12 U/L (15-37); BILIRUBIN,TOTAL 0.2 MG/DL (0.2-1.0); BLOOD UREA NITROGEN 18 MG/DL (7-18); CALCIUM LEVEL 8.6 MG/DL (8.5-10.1); CARBON DIOXIDE LEVEL 29 MEQ/L (21-32); CHLORIDE LEVEL 109 MEQ/L (98-107); CREATININE FOR GFR 0.73 MG/DL (0.55-1.02); GLOMERULAR FILTRATION RATE > 60.0 (>60); GLUCOSE, FASTING 81 MG/DL (70-105); POTASSIUM SERUM 4.2 MEQ/L (3.5-5.1); SODIUM LEVEL 144 MEQ/L (136-145); TOTAL PROTEIN 6.1 GM/DL (6.4-8.2)
[2016-11-02] MEDS ORDERED: MORPHINE 4 MG/ML 1ML SYRINGE IV ONE (16:15)
[2016-11-02] MEDS ORDERED: cefTRIAXone SOD 2 GM in D5W MINI-BAG PLUS 50 ML IV ONE (17:00)
[2016-11-02] MEDS ORDERED: CIPR500T89 PO (17:23)
[2016-11-02] MEDS ORDERED: PERC5TAB6 PO (17:23)
[2016-11-02] MEDS ORDERED: OXYCODONE/APAP 5MG/325MG(BULK) 1 TAB TAB PO ONE (17:30)
[2016-11-02 17:33] VITALS: BP 102/52
--- NOTE | 2016-11-03 08:33 | REP ---
REASON: Flank pain. COMPARISON: 09/25/2016 which showed bilateral nephroliths. The lung bases are clear and unchanged. Limited evaluation of the solid intra-abdominal organs show no gross abnormalities or significant changes from the prior exam. Note is again made of previous cholecystectomy. Limited evaluation of the pancreas and adrenal glands show no gross abnormalities or significant changes from the prior exam. Bilateral double J stent catheters are now seen, the proximal portion of each in the respective ureteropelvic junction and the distal portion of leads in their respective side of the urinary bladder. Note is again made of bilateral nephroliths status quo. No ureteroliths are present. There is no free fluid or free air in the abdomen or pelvis. Limited evaluation of the bowel loops and their mesenteries show no gross abnormalities. Bone window technique through the examination shows the osseous structures to be stable and intact. IMPRESSION: 1. Bilateral double J stent catheters as described above. 2. Bilateral known nephrolithiasis. 3. Other findings as described above. Signed by Ishaan Lazar DO 11/03/2016 10:27 A
== END 2016-11-02 17:45 | disposition home or self-care (01) ==
LOC: M ED 13:06
DX: N10 Acute pyelonephritis (principal); N30.91 Cystitis, unspecified with hematuria; J45.909 Unspecified asthma, uncomplicated; Z87.442 Personal history of urinary calculi; F17.210 Nicotine dependence, cigarettes, uncomplicated
CPT/HCPCS: 74176; 80053; 81000; 81001; 83605; 83690; 84703; 85027; 87040; 87086; 96361; 96365; 96375; 99282; J0696; J1885; J2405

== ENCOUNTER → 2016-12-09 | Outpatient (CLI) | payer OTHER ==
[~2016-12-09] MED LIST changes: +PERC5TAB6 PO
--- NOTE | 2016-12-10 05:40 | REP ---
Clinical: Nephrolithiasis. Technique: Real time curtis scale ultrasound examination using curved array transducer. Findings: Kidneys demonstrate significant central medullary echogenicities consistent with medullary sponge kidney and nephrocalcinosis with scattered discrete small renal calculi. No obvious hydronephrosis, cystic or mass lesion is identified. No perinephric fluid collections are appreciated. Right kidney measures 11.3 x 4.4 x 4.9 cm. Left kidney measures 10.2 x 5.8 x 5.7 cm. Bladder is incompletely distended and grossly normal in appearance. 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 Scattered nephroliths are noted without evidence for hydronephrosis. Signed by Benjy Jason MD 12/10/2016 05:31 A
== END ==
LOC: M RAD 10:02
PROVIDERS: ATTEND Internal Medicine Nephrology
DX: N20.0 Calculus of kidney (principal)